=== PATIENT | male | born 1980 | race Caucasian/White ===

== ENCOUNTER 2023-12-12 14:08 | Emergency (ER) | payer OTHER ==
[2023-12-12 14:20] VITALS: BP 146/96; RESP 16; TEMP 97.5
[2023-12-12] MEDS: HYDROcodone/APAP 5-325MG 1 EACH TAB PO STA (15:02)
[2023-12-12] MEDS: dexAMETHasone 2 MG TAB PO STA (15:02)
[2023-12-12] MEDS: AMOXIC-POT CLAV 875-125MG 1 EACH TAB PO STA (15:02)
--- NOTE | 2023-12-12 15:05 | ED ---
General Adult HPI - General Chief complaint: Dental/Oral Stated complaint: Dental pain Time Seen by Provider: 12/12/23 14:45 Source: patient, RN notes reviewed, old records reviewed Mode of arrival: ambulatory Limitations: no limitations - History of Present Illness Initial comments: Patient is a 43-year-old male who presents emergency department complaining of dental pain. Has been an ongoing issue for weeks. Also has left elbow bursitis which is an ongoing issue for months. Denies any fevers or chills. Denies any chest pain or shortness of breath. Denies any mild swelling otherwise. Presents for further evaluation at this time for pain relief. Has not seen a dentist or PCP in quite some time. No allergies. - Related Data Previous Rx's Medication Instructions Recorded Amoxic-Pot Clav 875-125Mg 1 tab PO BID 7 Days #14 tab 12/12/23 [Augmentin 875-125] Allergies Allergy/AdvReac Type Severity Reaction Status Date / Time No Known Allergies Allergy Verified 12/12/23 14:20 Review of Systems ROS Statement: Those systems with pertinent positive or pertinent negative responses have been documented in the HPI. Review of Systems: CONST: Denies fever EYES: Denies blurry vision ENT: Endorses toothache C/V: Denies Chest pain RESP: Denies shortness of breath GI: Denies abdominal pain : Denies dysuria SKIN: Denies rash. MSK: Endorses inflamed bursa of left elbow, chronic NEURO: Denies headache ROS Other: All systems not noted in ROS Statement are negative. Past Medical History History of Any Multi-Drug Resistant Organisms: None Reported Past Psychological History: No Psychological Hx Reported Smoking Status: Current every day smoker Past Alcohol Use History: None Reported Past Drug Use History: None Reported General Exam - General Exam Comments Initial Comments: General: Appears in no acute distress. HEAD: Normal with no signs of head trauma. EYES: EOMI. ENT: Endorses left lower dental pain. Chronic broken tooth located in the back molars. No obvious abscess. No obvious floor of the mouth swelling. No evidence of Musa's angina. No tongue edema. Uvula is midline. No posterior oropharyngeal swelling. No neck edema. No stridor. RESPIRATORY: No respiratory distress. Breath sounds bilaterally. C/V: Regular rate and rhythm. S1 and S2 auscultated. ABD: Abdomen is nondistended. EXT: No obvious deformity. SKIN: No rashes or lesions observed on exposed skin. NEURO: Alert and oriented. Limitations: no limitations Course Vital Signs 12/12/23 14:17 Temperature 97.5 F L Pulse Rate 75 Respiratory 16 Rate Blood Pressure 146/96 O2 Sat by Pulse 98 Oximetry Medical Decision Making - Medical Decision Making Was pt. sent in by a medical professional or institution ([facility], [facility], urgent care, hospital, or usp...) When possible be specific @ -No Did you speak to anyone other than the patient for history (EMS, parent, family, police, friend...)? What history was obtained from this source @ -No Did you review nursing and triage notes (agree or disagree)? Why? @ -I reviewed and agree with nursing and triage notes Were old charts reviewed (outside hosp., previous admission, EMS record, old EKG, old radiological studies, urgent care reports/EKG's, usp records)? Report findings @ -No old charts were reviewed Differential Diagnosis (chest pain, altered mental status, abdominal pain women, abdominal pain men, vaginal bleeding, weakness, fever, dyspnea, syncope, headache, dizziness, GI bleed, back pain, seizure, CVA, palpatations, mental health, musculoskeletal)? @ -Toothache, tooth infection, bursitis. This list is not all inclusive. EKG interpreted by me (3pts min.). @ -None done X-rays interpreted by me (1pt min.). @ -None done CT interpreted by me (1pt min.). @ -None done U/S interpreted by me (1pt. min.). @ -None done What testing was considered but not performed or refused? (CT, X-rays, U/S, labs)? Why? @ -Considered x-rays of the left elbow however patient has had chronic symptoms of the left elbow and therefore will be deferred at this time. No acute change. What meds were considered but not given or refused? Why? @ -None Did you discuss the management of the patient with other professionals (professionals i.e. [facility], [facility], lab, RT, psych nurse, nephrology social worker, civil engineering project manager, teacher, affirmative action officer, case management rn)? Give summary @ -No Was smoking cessation discussed for >3mins.? @ -No Was critical care preformed (if so, how long)? @ -No Were there social determinants of health that impacted care today? How? (Homelessness, low income, unemployed, alcoholism, drug addiction, transportation, low edu. Level, literacy, decrease access to med. care, long term, rehab)? @ -No Was there de-escalation of care discussed even if they declined (Discuss DNR or withdrawal of care, Hospice)? DNR status @ -No What co-morbidities impacted this encounter? (DM, HTN, Smoking, COPD, CAD, Cancer, CVA, ARF, Chemo, Hep., AIDS, mental health diagnosis, sleep apnea, morbid obesity)? @ -None Was patient admitted / discharged? Hospital course, mention meds given and route, prescriptions, significant lab abnormalities, going to OR and other pertinent info. @ -Presents with dental pain and chronic left elbow bursitis. Imaging is deferred. Vitals within acceptable limits. No evidence of Alexis's angina or serious ENT infection. Patient will be empirically started on Augmentin, given a dose of steroids, and given pain medications. Will be discharged home on Augmentin, starter pack of Tylenol 3. Instructed follow-up with dentistry. He was in agreement this plan. Vital signs within acceptable limits. I will provide the patient with a prescription for Augmentin. I instructed the patient to follow up with their PCP in the next 1-3 days. I provided contact information for follow up with Dr. Porter. I explained that the patient should return to the emergency department if they experience any worsening symptoms. Strict return precautions were discussed with the patient. The patient expressed understanding of these instructions. I answered all questions that the patient had. The patient was discharged home in good condition with their prescriptions and follow up information. Undiagnosed new problem with uncertain prognosis? @ -No Drug Therapy requiring intensive monitoring for toxicity (Heparin, Nitro, Insulin, Cardizem)? @ -No Were any procedures done? @ -No Diagnosis/symptom? @ -Toothache, left elbow bursitis Acute, or Chronic, or Acute on Chronic? @ -Acute on chronic Uncomplicated (without systemic symptoms) or Complicated (systemic symptoms)? @ -Uncomplicated Side effects of treatment? @ -No Exacerbation, Progression, or Severe Exacerbation? @ -No Poses a threat to life or bodily function? How? (Chest pain, USA, AR, pneumonia, PE, COPD, DKA, ARF, appy, cholecystitis, CVA, Diverticulitis, Homicidal, Suicidal, threat to staff... and all critical care pts) @ -No Disposition Clinical Impression: Toothache, Bursitis of left elbow Disposition: HOME SELF-CARE Condition: Good Instructions (If sedation given, give patient instructions): Toothache (ED), Elbow Bursitis (ED) Prescriptions: Amoxic-Pot Clav 875-125Mg [Augmentin 875-125] 1 tab PO BID 7 Days #14 tab Is patient prescribed a controlled substance at d/c from ED?: No Referrals: None,Stated [Primary Care Provider] - 1-2 days Layo Porter DDS [STAFF PHYSICIAN] - 1-2 days Forms: PH Area PCPs Time of Disposition: 15:05
[2023-12-12] MEDS: ACET/COD 300 MG/30 MG STARTER PACK 6 TAB BTL PO STA (15:26)
[2023-12-12 15:29] VITALS: PULSE 73
== END 2023-12-12 15:29 | disposition home or self-care (01) ==
LOC: EC 14:08
DX: K08.89 Other specified disorders of teeth and supporting structures (principal); M70.32 Other bursitis of elbow, left elbow; F17.200 Nicotine dependence, unspecified, uncomplicated
CPT/HCPCS: 99283; J8540

== ENCOUNTER → 2024-02-29 | Outpatient (CLI) | payer OTHER ==
--- NOTE | 2024-02-29 16:56 | XR ---
EXAMINATION TYPE: XR elbow complete LT DATE OF EXAM: 02/29/2024 2:50 PM COMPARISON: None CLINICAL INDICATION: Male, 43 years old with history of M25.522; [facility] TECHNIQUE: XR elbow complete LT; elbow was examined in AP, lateral, and oblique projections. FINDINGS: No evidence of any acute osseous pathology, joint dislocation, or soft tissue swelling is n oted. No evidence of joint effusion is present. IMPRESSION: No evidence of acute fracture. [facility], , 02/29/2024 4:54 PM
== END | disposition home or self-care (01) ==
LOC: RADXRMAIN 14:32
PROVIDERS: ATTEND Internal Medicine
DX: M25.522 Pain in left elbow (principal)